=== PATIENT | female | born 1995 | race Caucasian/White ===

== ENCOUNTER 2021-03-24 15:45 | Emergency (ER) | payer BC, MEDICAID ==
[~2021-03-24] VITALS: Ht 162.6 cm; Wt 97.1 kg
[2021-03-24 15:49] VITALS: BP_SYST 124
--- NOTE | 2021-03-24 15:55 | NUR ---
Pt placed to ER waiting room in stable condition. Will notify of HR.
--- NOTE | 2021-03-24 16:01 | NUR ---
TAKEN INTO TRIAGE ROOM BY DR CARRINGTON AND EVALUATED.
[2021-03-24] MEDS: predniSONE 20 MG TABLET PO ONE (16:39)
[2021-03-24] MEDS: DIPHENHYDRAMINE HCL 50 MG CAPSULE PO ONE (16:39)
--- NOTE | 2021-03-24 16:44 | NUR ---
notified Dr. Tyler pulse remains tachycardic, okay to discharge
[2021-03-24 16:48] VITALS: BP_SYST 115
--- NOTE | 2021-03-24 16:48 | NUR ---
Patient given written and verbal discharge instructions and verbalizes understanding. ER Dr. Tyler discussed with patient the results and treatment provided. Patient in stable condition. ID arm band removed. Rx of Prednisone given. Patient educated on pain management and to follow up with PMD. Pain Scale 4. Opportunity for questions provided and answered. Medication side effect fact sheet provided.
== END 2021-03-24 16:48 | disposition home or self-care (01) ==
LOC: SED 15:45
DX: T78.1XXA Other adverse food reactions, not elsewhere classified, initial encounter (principal); L50.9 Urticaria, unspecified; X58.XXXA Exposure to other specified factors, initial encounter
CPT/HCPCS: 99283; J7512; Q0163